=== PATIENT | male | born 1950 ===

== ENCOUNTER 2018-09-16 02:27 | Outpatient (CLI) | payer MEDICARE, BC | END 2018-09-16 23:59 | disposition home or self-care (01) | LOC: DIABETIC 02:27 | PROVIDERS: ATTEND General Practice | DX: E11.9 Type 2 diabetes mellitus without complications (principal); Z88.2 Allergy status to sulfonamides | CPT/HCPCS: G0108 ==

== ENCOUNTER 2018-10-12 03:25 | Outpatient (CLI) | payer MEDICARE, BC | END 2018-10-12 23:59 | disposition home or self-care (01) | LOC: DIABETIC 03:25 | PROVIDERS: ATTEND General Practice | DX: E11.9 Type 2 diabetes mellitus without complications (principal); I10 Essential (primary) hypertension; E78.5 Hyperlipidemia, unspecified; Z79.899 Other long term (current) drug therapy; Z88.2 Allergy status to sulfonamides | CPT/HCPCS: G0108 ==

== ENCOUNTER 2019-01-14 03:52 | Outpatient (CLI) | payer MEDICARE, BC | END 2019-01-14 23:59 | disposition home or self-care (01) | LOC: DIABETIC 03:52 | PROVIDERS: ATTEND General Practice | DX: E11.9 Type 2 diabetes mellitus without complications (principal); Z88.2 Allergy status to sulfonamides | CPT/HCPCS: G0108 ==